=== PATIENT | female | born 1995 | race Caucasian/White ===

== ENCOUNTER 2022-05-10 14:20 | Emergency (ER) | payer MEDICAID ==
[~2022-05-10] VITALS: Ht 157.5 cm; Wt 79.5 kg
[2022-05-10 16:40] VITALS: TEMP 98.4
[2022-05-10 17:46] LABS: BASO % 0.5 % (0.0-2.0); EOS # 0.3 K/mm3 (0.0-0.7); EOS % 2.9 % (0.0-4.0); GRAN # 5.7 K/mm3 (1.4-6.5); GRAN % 67.1 % (42.2-75.2); HEMATOCRIT 43.7 % (37.0-47.0); HEMOGLOBIN 14.3 g/dl (12.5-16.0); MEAN CELL VOLUME 89 fl (80.0-100.0); MEAN CORPUSCULAR HEMOGLOBIN 29 pg (27-31); MEAN CORPUSCULAR HGB CONC 33 g/dl (33.0-37.0); MEAN PLATELET VOLUME 11.3 fl (7.4-10.4); MONO # 0.5 K/mm3 (0.1-0.6); MONO % 6.3 % (1.7-9.3); PLATELET COUNT 275 K/mm3 (130-400); RED BLOOD COUNT 4.92 M/mm3 (4.10-5.30); REDCELL DISTRIBUTION WIDTH-CV 13.2 % (11.5-14.5)
[2022-05-10 18:01] LABS: ALBUMIN 4.2 gm/dL (3.5-5.0); BILIRUBIN,TOTAL 0.6 mg/dL (0.2-1.2); CALCIUM 9.7 mg/dL (8.4-10.2); CREATININE, serum 0.75 mg/dL (0.57-1.11); POTASSIUM 3.5 mmol/L (3.5-4.5); TOTAL PROTEIN 7.8 gm/dL (6.2-8.1)
[2022-05-10 19:10] VITALS: BP 118/81; PULSE 76
== END 2022-05-10 19:10 | disposition home or self-care (01) ==
LOC: COL.ER 14:20
PROVIDERS: Emergency Medicine
DX: M79.661 Pain in right lower leg (principal); M79.89 Other specified soft tissue disorders; R79.1 Abnormal coagulation profile
CPT/HCPCS: J1650

== ENCOUNTER → 2022-05-11 | Outpatient (CLI) | payer MEDICAID | LOC: COL.VAS 08:54 | DX: M79.661 Pain in right lower leg (principal) ==

== ENCOUNTER 2022-12-20 14:08 | Inpatient (IN) | payer MEDICAID ==
[~2022-12-20] VITALS: Ht 157.5 cm; Wt 68.2 kg
[2022-12-20 14:37] LABS: HEMOGLOBIN 14.2 g/dl (12.5-16.0); MEAN CELL VOLUME 89 fl (80.0-100.0); MEAN CORPUSCULAR HEMOGLOBIN 30 pg (27-31); MEAN CORPUSCULAR HGB CONC 33 g/dl (33.0-37.0); MEAN PLATELET VOLUME 11.3 fl (7.4-10.4); PLATELET COUNT 392 K/mm3 (130-400); RED BLOOD COUNT 4.82 M/mm3 (4.10-5.30); REDCELL DISTRIBUTION WIDTH-CV 13.2 % (11.5-14.5)
[2022-12-20 14:56] LABS: ALBUMIN 4.1 gm/dL (3.5-5.0); BILIRUBIN,TOTAL 0.6 mg/dL (0.2-1.2); CALCIUM 9.5 mg/dL (8.4-10.2); CREATININE, serum 0.75 mg/dL (0.57-1.11); POTASSIUM 3.7 mmol/L (3.5-4.5); TOTAL PROTEIN 7.9 gm/dL (6.2-8.1)
[2022-12-20 15:26] LABS: BAND 1 % (0-10); LYMPHOCYTE 3 % (20.0-51.0); NEUTROPHILS 93 % (42.0-75.2); PLATELET ESTIMATE NORMAL (NORMAL)
[2022-12-20] MEDS ORDERED: SAXENDA6 MG/ML (16:26)
[2022-12-20] MEDS ORDERED: ZOLOFT 50MG50 MG (16:27)
[2022-12-20] MEDS ORDERED: STRATTERA 40MG40 MG (16:27)
[2022-12-20] MEDS ORDERED: WOMEN'S DAILY1 TAB (16:28)
[2022-12-20 20:27] VITALS: BP 125/82; PULSE 83; TEMP 98.7
--- NOTE | 2022-12-20 20:30 | NUR ---
ASSESSMENT COMPLETE. PT SITTING UP IN BED WITH CLEAR LIQUID DINNER TRAY. PT REPORTS SIPPING ON JUICE, BUT CAUSES STOMACH TO CRAMP. DENIES NAUSEA AT THIS TIME. DISCUSSED PRN MEDS AND POC FOR THE NIGHT. PT STATES UNDERSTANDING. WILL CONTINUE TO MONITOR.
[2022-12-21] VITALS (7 sets, daily range): BP systolic 103–121; BP diastolic 67–84; PULSE 67–94; TEMP 98.1–99
[2022-12-21 06:55] LABS: BASO % 0.1 % (0.0-2.0); EOS % 0.2 % (0.0-4.0); GRAN % 84.6 % (42.2-75.2); LYMPH # 1.2 K/mm3 (1.2-3.4); LYMPH % 7.4 % (20.0-51.0); MEAN CELL VOLUME 89 fl (80.0-100.0); MEAN CORPUSCULAR HGB CONC 33 g/dl (33.0-37.0); MEAN PLATELET VOLUME 11.5 fl (7.4-10.4); MONO # 1.2 K/mm3 (0.1-0.6); MONO % 7.2 % (1.7-9.3); RED BLOOD COUNT 4.11 M/mm3 (4.10-5.30); REDCELL DISTRIBUTION WIDTH-CV 13.3 % (11.5-14.5)
[2022-12-21 06:56] LABS: HEMOGLOBIN 11.9 g/dl (12.5-16.0); MEAN CORPUSCULAR HEMOGLOBIN 29 pg (27-31)
[2022-12-21 06:57] LABS: HEMATOCRIT 36.6 % (37.0-47.0)
[2022-12-21 06:58] LABS: PLATELET COUNT 284 K/mm3 (130-400)
[2022-12-21 07:15] LABS: CALCIUM 8.3 mg/dL (8.4-10.2); CREATININE, serum 0.69 mg/dL (0.57-1.11); POTASSIUM 3.5 mmol/L (3.5-4.5)
--- NOTE | 2022-12-21 08:00 | NUR ---
Pt. sitting up in bed. Pt. is A&OX3, assessment complete, IV to lt. ac patent, IV fluids infusing per orders. Pt. denies pain or other needs, call light within reach.
--- NOTE | 2022-12-21 14:08 | NUR ---
SW met with patient to complete intake. Patient reports that she lives in [facility] with her daughter and boyfriend however, her boyfriend is currently deployed. Patients child has been left in the care of her mother Sury ([phone]) while she is in the hospital. Patient is fully independent with her ADL's and IADL's. She has no DME or home oxygen needs. PCP is Dr. Raymond and [facility]. Patient denies having a DPOA-HC established and does not wish to create one at this time. She is planning on returning home once medically ready. Discharge plan: Home
--- NOTE | 2022-12-21 20:30 | NUR ---
Patient assessed at this time, see shift assessment, verbalized pain isn't too bad, denies the need for pain meds, still on clear liquids, with IV infusing well on left AC, LR running at 75cc/hr, denies further needs, call light and personal items within reach, will continue to monitor.
[2022-12-22 03:47] VITALS: BP 112/79; PULSE 93; TEMP 98.6
--- NOTE | 2022-12-22 05:04 | NUR ---
IV antibiotics given at this time, denies need at this time.
[2022-12-22 07:03] LABS: BASO % 0.2 % (0.0-2.0); EOS # 0.1 K/mm3 (0.0-0.7); EOS % 1.3 % (0.0-4.0); GRAN # 6.9 K/mm3 (1.4-6.5); GRAN % 74.2 % (42.2-75.2); HEMOGLOBIN 11.1 g/dl (12.5-16.0); LYMPH # 1.5 K/mm3 (1.2-3.4); LYMPH % 16.7 % (20.0-51.0); MEAN CELL VOLUME 87 fl (80.0-100.0); MEAN CORPUSCULAR HEMOGLOBIN 29 pg (27-31); MEAN CORPUSCULAR HGB CONC 34 g/dl (33.0-37.0); MEAN PLATELET VOLUME 11.6 fl (7.4-10.4); MONO # 0.7 K/mm3 (0.1-0.6); MONO % 7.3 % (1.7-9.3); PLATELET COUNT 246 K/mm3 (130-400); REDCELL DISTRIBUTION WIDTH-CV 13.2 % (11.5-14.5)
[2022-12-22 07:05] LABS: HEMATOCRIT 32.9 % (37.0-47.0)
[2022-12-22 07:25] LABS: CALCIUM 8.2 mg/dL (8.4-10.2); CREATININE, serum 0.67 mg/dL (0.57-1.11); POTASSIUM 3.4 mmol/L (3.5-4.5)
[2022-12-22 07:36] VITALS: BP 108/73; PULSE 74; TEMP 98.3
--- NOTE | 2022-12-22 08:00 | NUR ---
Pt. sitting up in bed. PT. is A&OX3, assessment complete. INT to lt. forearm patent. Pt. denies pain or other needs, call light within reach.
[2022-12-22] MEDS ORDERED: AMOXICILLIN 8751 TAB PO (11:05)
--- NOTE | 2022-12-22 11:30 | NUR ---
Pt. with discharge orders. Pt. given and reviewed discharge paperwork. INT discontinued from lt. forearm. Pt. voices understanding. Pt. escorted out by this nurse
== END 2022-12-22 11:30 | disposition home or self-care (01) | DRG 392 ==
LOC: COL.ER 14:08 → SURG 17:02 → EDBEDREQ 17:13 → SURG 12-21 07:32
PROVIDERS: Physician Assistant; ADMIT Surgery
DX: A09 Infectious gastroenteritis and colitis, unspecified (principal); F90.9 Attention-deficit hyperactivity disorder, unspecified type; F41.9 Anxiety disorder, unspecified; E86.0 Dehydration; Z23 Encounter for immunization
CPT/HCPCS: OP; J2270; J2405; J2543; J7030; J7120; Q9967